=== PATIENT | female | born 1995 | race Asian ===

== ENCOUNTER 2016-04-15 10:59 | Emergency (ER) | payer OTHER ==
[~2016-04-15] VITALS: Ht 172.7 cm; Wt 60.8 kg
[2016-04-15 14:20] VITALS: BP 115/68; TEMP 98.2
== END 2016-04-15 14:24 | disposition home or self-care (01) ==
LOC: ED 10:59
DX: N39.0 Urinary tract infection, site not specified (principal)
CPT/HCPCS: 81000; 81025; 87077; 87086; 87088; 87185; 87186; 99283

== ENCOUNTER 2016-07-03 11:53 | Outpatient (CLI) | payer OTHER | END 2016-07-03 19:39 | disposition home or self-care (01) | LOC: RAD 11:53 | DX: Z11.1 Encounter for screening for respiratory tuberculosis (principal) ==

== ENCOUNTER 2016-08-01 10:05 | Emergency (ER) | payer OTHER ==
[~2016-08-01] VITALS: Ht 172.7 cm; Wt 68.0 kg
[2016-08-01 10:53] LABS: SODIUM 140 mmol/L (136-145)
[2016-08-01 10:56] LABS: PLATELET COUNT 245 K/uL (152-353)
[2016-08-01 11:30] VITALS: BP 125/74; TEMP 98
== END 2016-08-01 11:30 | disposition home or self-care (01) ==
LOC: ED 10:05
DX: A08.39 Other viral enteritis (principal)
CPT/HCPCS: 36415; 80053; 81000; 81025; 85027; 86318; 96361; 96374; 99284; J2405

== ENCOUNTER 2016-09-08 21:34 | Emergency (ER) | payer OTHER ==
[~2016-09-08] VITALS: Ht 172.7 cm; Wt 65.8 kg
[2016-09-08 22:14] VITALS: BP 114/65; TEMP 98.7
== END 2016-09-08 22:14 | disposition home or self-care (01) ==
LOC: ED 21:34
DX: R11.0 Nausea (principal)
CPT/HCPCS: 99281

== ENCOUNTER 2017-08-09 12:02 | Emergency (ER) | payer OTHER ==
[~2017-08-09] VITALS: Ht 172.7 cm; Wt 61.2 kg
[2017-08-09 12:38] LABS: PLATELET COUNT 247 K/uL (152-353)
[2017-08-09 12:40] LABS: POTASSIUM 3.6 mmol/L (3.6-5.2)
[2017-08-09 15:40] VITALS: BP 109/71; TEMP 99.2
== END 2017-08-09 15:46 | disposition home or self-care (01) ==
LOC: ED 12:02
DX: K29.60 Other gastritis without bleeding (principal)
CPT/HCPCS: 36415; 80053; 81000; 81025; 85027; 99283; Q9963

== ENCOUNTER 2017-09-19 16:48 | Emergency (ER) | payer OTHER ==
[~2017-09-19] VITALS: Ht 172.7 cm; Wt 58.1 kg
[2017-09-19 17:01] VITALS: TEMP 98.1
[2017-09-19 17:45] VITALS: BP 118/70
== END 2017-09-19 17:45 | disposition home or self-care (01) ==
LOC: ED 16:48
DX: R07.89 Other chest pain (principal); Z34.81 Encounter for supervision of other normal pregnancy, first trimester
CPT/HCPCS: 99282

== ENCOUNTER 2019-11-16 09:38 | Emergency (ER) | payer OTHER ==
[~2019-11-16] VITALS: Ht 172.7 cm; Wt 58.1 kg
[2019-11-16 09:45] VITALS: TEMP 99.1
[2019-11-16 10:35] LABS: PLATELET COUNT 226 K/uL (152-353)
[2019-11-16 10:47] LABS: POTASSIUM 3.3 mmol/L (3.6-5.2)
[2019-11-16 13:38] VITALS: BP 120/67
== END 2019-11-16 13:38 | disposition home or self-care (01) ==
LOC: ED 09:38
PROVIDERS: Family Medicine
DX: E87.6 Hypokalemia (principal); R30.0 Dysuria; R21 Rash and other nonspecific skin eruption; Z20.828 Contact with and (suspected) exposure to other viral communicable diseases; F17.290 Nicotine dependence, other tobacco product, uncomplicated
CPT/HCPCS: 80053; 81000; 81025; 85027; 86592; 86593; 87635; 87651; 99283; U0003